=== PATIENT | male | born 1990 | race Caucasian/White ===

== ENCOUNTER 2018-12-06 19:09 | Emergency (ER) | payer OTHER ==
[2018-12-06] MEDS: EPINEPHrine 1 MG INJ SC (20:33)
[2018-12-06] MEDS: DIPHENHYDRAMINE 50 MG CAP PO (22:12)
== END 2018-12-06 23:37 | disposition home or self-care (01) ==
LOC: FTE 19:09
DX: R22.0 Localized swelling, mass and lump, head (principal); R40.2412 Glasgow coma scale score 13-15, at arrival to emergency department
CPT/HCPCS: 99282; J0171

== ENCOUNTER 2019-02-04 12:30 | Day surgery (SDC) | payer OTHER ==
[2019-02-04] MEDS ORDERED: DIPHENHYDRAMINE 50 MG INJ (13:36)
[2019-02-04] MEDS ORDERED: MIDAZOLAM 1 MG/ML 2 ML INJ ×2 (14:20)
[2019-02-04] MEDS ORDERED: FENTAnyl 50 MCG/ML VIAL (14:21)
[2019-02-04] MEDS ORDERED: LIDOCAINE 2% (SDV) 5 ML INJ (14:22)
[2019-02-04] MEDS ORDERED: ONDANSETRON 4 MG INJ (14:23)
== END 2019-02-04 16:51 | disposition home or self-care (01) ==
LOC: GIL 12:30
DX: R19.4 Change in bowel habit (principal); K29.30 Chronic superficial gastritis without bleeding
CPT/HCPCS: 43239; 88305; 88312

== ENCOUNTER 2019-03-11 03:31 | Observation (INO) | payer OTHER ==
[2019-03-11] MEDS: ACETAMINOPHEN 325 MG TAB PO ×4 (04:07→20:39)
[2019-03-11] MEDS: SODIUM CHLORIDE 0.9% 1L BAG IV* (04:07)
[2019-03-11 04:08] LABS: ADD MAN DIFF? NO
[2019-03-11 04:10] LABS: WHITE BLOOD COUNT 16.1 10^3/ul (4.8-10.8)
[2019-03-11 04:10] LABS: BASOPHILS % 0.2 % (0.0-2.0); EOSINOPHILS # 0.1 10^3/ul (0.0-0.5); EOSINOPHILS % 0.4 % (0.0-7.0); HEMATOCRIT 48.6 % (42.0-52.0); HEMOGLOBIN 15.9 g/dl (14.0-18.0); LYMPHOCYTES # 1.4 10^3/ul (0.8-2.9); LYMPHOCYTES % 8.7 % (15.0-51.0); MEAN CORPUSCULAR HEMOGLOBIN 26.3 pg (29.0-33.0); MEAN CORPUSCULAR HGB CONC 32.7 g/dl (32.0-37.0); MEAN CORPUSCULAR VOLUME 80.5 fl (82.0-101.0); MEAN PLATELET VOLUME 8.2 fl (7.4-10.4); MONOCYTE # 0.5 10^3/ul (0.3-0.9); MONOCYTES % 3.2 % (0.0-11.0); NEUTROPHILS % 87.1 % (39.0-77.0); PLATELET COUNT 302 10^3/UL (140-415); RED BLOOD COUNT 6.04 10^6/ul (4.70-6.10)
[2019-03-11] MEDS: CEFEPIME 2GM/50 ML (PMX) 50 ML IVPB (04:10)
[2019-03-11] MEDS ORDERED: ONDANSETRON 4 MG INJ (04:17)
[2019-03-11 04:27] LABS: ALANINE AMINOTRANSFERASE 33 IU/L (13-69); ALBUMIN 4.7 g/dl (3.3-4.9); ALBUMIN/GLOBULIN RATIO 1.34; ALKALINE PHOSPHATASE 79 IU/L (42-121); ANION GAP 11 (5-13); ASPARTATE AMINO TRANSFERASE 25 IU/L (15-46); BILIRUBIN,INDIRECT 0.2 mg/dl (0-1.1); BILIRUBIN,TOTAL 0.2 mg/dl (0.2-1.3); BLOOD UREA NITROGEN 13 mg/dl (7-20); CALCIUM 9.6 mg/dl (8.4-10.2); CARBON DIOXIDE 29 mmol/L (21-31); CHLORIDE 104 mmol/L (97-110); CREATININE 0.93 mg/dl (0.61-1.24); Estimated GFR > 60 mL/min (>60); GLUCOSE 99 mg/dl (70-220); POTASSIUM 3.8 mmol/L (3.5-5.1); SODIUM 144 mmol/L (135-144); TOTAL PROTEIN 8.2 g/dl (6.1-8.1)
[2019-03-11 04:30] LABS: INR 0.96; PARTIAL THROMBOPLASTIN TIME 25.7 Sec (23.0-35.0); PROTIME 12.9 Sec (11.9-14.9)
[2019-03-11] MEDS: morphine 4 MG/ML VIAL IV ×2 (04:31→06:06)
[2019-03-11] MEDS: ONDANSETRON 4 MG INJ IV (04:31)
[2019-03-11] MEDS: KETOROLAC 30 MG INJ IV (04:32)
[2019-03-11 04:38] LABS: TROPONIN-I < 0.012 ng/ml (0.000-0.120)
[2019-03-11] MEDS: VANCOMYCIN 1 GM (PMX) 250 ML IVPB (04:46)
[2019-03-11 06:26] LABS: ADD UMIC NO; UR ASCORBIC ACID NEGATIVE (NEGATIVE); UR BILIRUBIN (Dip) NEGATIVE (NEGATIVE); UR BLOOD (Dip) NEGATIVE (NEGATIVE); UR CLARITY CLEAR (CLEAR); UR COLOR STRAW (YELLOW); UR GLUCOSE (Dip) NEGATIVE (NEGATIVE); UR KETONES (Dip) NEGATIVE (NEGATIVE); UR LEUKOCYTE ESTERASE (Dip) NEGATIVE Leu/ul (NEGATIVE); UR NITRITE (Dip) NEGATIVE (NEGATIVE); UR SPECIFIC GRAVITY (Dip) 1.011 (1.003-1.030); UR TOTAL PROTEIN (Dip) NEGATIVE (NEGATIVE); UR UROBILINOGEN (Dip) NEGATIVE (NEGATIVE)
[2019-03-11] MEDS ORDERED: VANCOMYCIN IV PER PHARMACY XX (06:30)
[2019-03-11] MEDS ORDERED: DOCUSATE SODIUM 100 MG CAP PO (06:30)
[2019-03-11] MEDS ORDERED: NACL 0.9% 3 ML SYG IV (06:30)
[2019-03-11 06:48] LABS: LACTIC ACID 1.4 mmol/L (0.5-2.0)
[2019-03-11] MEDS: HYDROCODONE/APAP (5/325) TAB PO ×2 (08:27→14:49)
[2019-03-11] MEDS ORDERED: NON-FORMULARY/PATIENT OWN MED (Cetirizine Hcl* (Zyrtec*) 10 MG) PO (09:00)
[2019-03-11] MEDS: NS + KCL 20 MEQ 1,000 ML IV ×2 (09:16→18:04)
[2019-03-11] MEDS: RANITIDINE 150 MG TAB PO ×2 (10:57→21:00)
[2019-03-11] MEDS: VANCOMYCIN 500 MG (PMX) 100 ML IVPB (10:57)
[2019-03-11] MEDS: LORATADINE 10 MG TAB PO (10:57)
[2019-03-11 11:33] LABS: HEMATOCRIT 41.3 % (42.0-52.0); HEMOGLOBIN 13.5 g/dl (14.0-18.0)
[2019-03-11 11:42] LABS: HEMOGLOBIN A1C 5.2 % (0-5.9)
[2019-03-11 11:53] LABS: LACTIC ACID 1.3 mmol/L (0.5-2.0)
[2019-03-11 12:06] LABS: TROPONIN-I < 0.012 ng/ml (0.000-0.120)
[2019-03-11] MEDS: CIPROFLOXACIN 400MG/D5W 200 ML IVPB ×2 (12:45→21:23)
[2019-03-11] MEDS: metroNIDAZOLE 500 MG/NS (PMX) 100 ML IVPB ×2 (14:18→22:45)
[2019-03-11] MEDS ORDERED: VANCOMYCIN 1 GM 250 ML IVPB (17:00)
[2019-03-11] MEDS: ONDANSETRON 4 MG TAB PO (21:23)
[2019-03-11] MEDS: IBUPROFEN 600 MG TAB PO (21:40)
[2019-03-12] MEDS: metroNIDAZOLE 500 MG/NS (PMX) 100 ML IVPB ×3 (05:17→22:06)
[2019-03-12] MEDS: NS + KCL 20 MEQ 1,000 ML IV ×3 (05:17→18:14)
[2019-03-12] MEDS: IBUPROFEN 600 MG TAB PO ×2 (05:17→18:12)
[2019-03-12 07:55] LABS: ADD MAN DIFF? NO
[2019-03-12 08:05] LABS: WHITE BLOOD COUNT 12.5 10^3/ul (4.8-10.8)
[2019-03-12 08:05] LABS: BASOPHIL # 0.1 10^3/ul (0.0-0.1); BASOPHILS % 0.5 % (0.0-2.0); EOSINOPHILS # 0.1 10^3/ul (0.0-0.5); EOSINOPHILS % 0.8 % (0.0-7.0); HEMATOCRIT 41.2 % (42.0-52.0); HEMOGLOBIN 13.4 g/dl (14.0-18.0); LYMPHOCYTES % 7.8 % (15.0-51.0); MEAN CORPUSCULAR HEMOGLOBIN 26.6 pg (29.0-33.0); MEAN CORPUSCULAR HGB CONC 32.5 g/dl (32.0-37.0); MEAN CORPUSCULAR VOLUME 81.7 fl (82.0-101.0); MEAN PLATELET VOLUME 8.6 fl (7.4-10.4); MONOCYTES % 7.8 % (0.0-11.0); NEUTROPHIL # 10.3 10^3/ul (1.6-7.5); NEUTROPHILS % 82.5 % (39.0-77.0); PLATELET COUNT 201 10^3/UL (140-415); RED BLOOD COUNT 5.04 10^6/ul (4.70-6.10); RED CELL DISTRIBUTION WIDTH 13.6 % (11.5-14.5)
[2019-03-12 08:17] LABS: ANION GAP 7 (5-13); BLOOD UREA NITROGEN 6 mg/dl (7-20); CALCIUM 8.8 mg/dl (8.4-10.2); CARBON DIOXIDE 26 mmol/L (21-31); CHLORIDE 107 mmol/L (97-110); CREATININE 0.76 mg/dl (0.61-1.24); Estimated GFR > 60 mL/min (>60); GLUCOSE 103 mg/dl (70-220); MAGNESIUM 1.7 mg/dl (1.7-2.5); POTASSIUM 3.8 mmol/L (3.5-5.1); SODIUM 140 mmol/L (135-144)
[2019-03-12] MEDS: RANITIDINE 150 MG TAB PO ×2 (08:46→21:03)
[2019-03-12] MEDS: CIPROFLOXACIN 400MG/D5W 200 ML IVPB ×2 (08:46→21:03)
[2019-03-12] MEDS: LORATADINE 10 MG TAB PO (08:46)
[2019-03-12] MEDS ORDERED: CEFEPIME 2GM/50 ML (PMX) 50 ML IVPB (09:00)
[2019-03-12] MEDS: morphine 2 MG INJ IV ×3 (10:51→20:02)
[2019-03-12] MEDS: ONDANSETRON 4 MG INJ IV (22:10)
[2019-03-13 11:52] LABS: NIL 4.52 IU/mL; QUANTIFERON(R)-TB GOLD NEGATIVE (NEGATIVE); TB-NIL 0.32 IU/mL; TB2-NIL 0.19 IU/mL
== END 2019-03-12 23:29 | disposition home or self-care (01) ==
LOC: E/R 03:31 → PP2 05:53
PROVIDERS: Internal Medicine
DX: A09 Infectious gastroenteritis and colitis, unspecified (principal)
CPT/HCPCS: 36415; 71045; 74176; 80048; 80053; 81003; 83036; 83605; 83735; 84443; 84484; 85014; 85018; 85025; 85610; 85730; 86480; 87040-91; 87045; 87086; 93005; 93306; 96365; 96375; 99217; 99285-25; G0378